=== PATIENT | male | born 1980 | race Two or more races ===

== ENCOUNTER 2017-10-08 15:56 | Emergency (ER) | payer OTHER | END 2017-10-08 17:15 | disposition home or self-care (01) | LOC: ER 15:56 | DX: S62.646A Nondisplaced fracture of proximal phalanx of right little finger, initial encounter for closed fracture (principal); W01.0XXA Fall on same level from slipping, tripping and stumbling without subsequent striking against object, initial encounter; Y93.89 Activity, other specified; Y99.8 Other external cause status; Y92.89 Other specified places as the place of occurrence of the external cause | CPT/HCPCS: 29125; 73130; 99284-25 ==

== ENCOUNTER 2021-03-09 11:58 | Emergency (ER) | payer SELFPAY ==
[~2021-03-09] VITALS: Ht 180.3 cm; Wt 138.6 kg
[~2021-03-09 11:58] MED LIST: HYDR-3164 PO
[2021-03-09 12:18] VITALS: BP 181/97
--- NOTE | 2021-03-09 12:51 | PHYS DOC ---
Past Medical History Past Medical History: No Pertinent History Past Surgical History: Other Additional Past Surgical Histo: right ear surgery Smoking Status: Current Every Day Smoker Alcohol Use: Occasionally Drug Use: None General Adult EDM: Chief Complaint: OTHER COMPLAINTS HPI: HPI: 40-year-old male past medical history obesity and tobacco dependence presents to the ED with his , (patient consents to his/her/their knowledge and involvement in pts' medical care), complains of painful white spots on his tongue for the past 2 days with associated decreased appetite. Cannot recall any acidic or spicy foods, trauma or dental work, aggressive brushing or new bra carol/retainers. No prior history of white oral lesions. No known history of immunocompromised state. Is in a monogamous relationship (no new sexual partners). No associated fever chills, cough, sore throat, headache, sinus congestion, flulike symptoms, anorexia or upper respiratory symptoms. Review of Systems: Review of Systems: Constitutional: Denies fever or chills. [] Eyes: Denies change in visual acuity. [] HENT: Denies nasal congestion or sore throat. [] Respiratory: Denies cough or shortness of breath. [] Cardiovascular: Denies chest pain or edema. [] GI: Denies nausea or vomiting or dysphagia Musculoskeletal: Denies back pain or joint pain. [] Integument: Denies rash or diaphoresis Neurologic: Denies headache, focal weakness or sensory changes. [] Endocrine: Denies polyuria or polydipsia. [] Lymphatic: Denies swollen glands. [] Psychiatric: Denies depression or anxiety. [] Heart Score: C/O Chest Pain: No Risk Factors: Risk Factors: DM, Current or recent (<one month) smoker, HTN, HLP, family history of CAD, obesity. Risk Scores: Score 0 - 3: 2.5% MACE over next 6 weeks - Discharge Home Score 4 - 6: 20.3% MACE over next 6 weeks - Admit for Clinical Observation Score 7 - 10: 72.7% MACE over next 6 weeks - Early Invasive Strategies Allergies: Allergies: Allergies Coded Allergies Type Severity Reaction Last Updated Verified No Known Drug Allergies 05/13/14 No Physical Exam: PE: Constitutional: Well developed, well nourished, no acute distress, non-toxic appearance. HENT: Normocephalic, atraumatic, mild pharyngeal erythema w./exudates, oropharynx patent, white patches over tongue and both pharyngeal tonsils, uvula midline/no swelling, Eyes: PERRLA, EOMI, conjunctiva normal, no discharge. Neck: Normal range of motion, supple, Cardiovascular: S1/2 present, regular rhythm Lungs & Thorax: Speaking in full sentences, bilateral equal chest rise, no tachypnea or increased work of breathing Skin: Warm, dry, no erythema, no rash. [] Extremities: No tenderness, no cyanosis, Neurologic: Alert and oriented X 3, normal motor function, normal sensory function, no focal deficits noted. [] Psychologic: Affect normal, judgement normal, mood normal. [] Current Patient Data: Vital Signs: Vital Signs Date Time Temp Pulse Resp B/P (MAP) Pulse Ox O2 Delivery O2 Flow Rate FiO2 03/09/21 12:18 97.9 114 18 181/97 (125) 97 Room Air 97.9 EKG: EKG: [] Radiology/Procedures: Radiology/Procedures: [] Course & Med Decision Making: Course & Med Decision Making Pertinent Labs and Imaging studies reviewed. (See chart for details) Concern for tongue ulcers and pharyneal exudates/erythema, concerning for viral process although pt was educated on ddx which includes HIV, lichen planus, strep, herpes or cancer. Pt refused covid testing. Will test for viral sources. Pt understands followup is needed if symptoms do not resolve in the next 2 weeks. Patient is tolerating oral intake. Repeat heart rate is 98 bpm. Pt with asymptomatic hypertension-no chest pain, confusion or dyspnea. Will discharge home with strict ED return precautions were given for fever, headache, nuchal rigidity, difficulty swallowing or breathing. Encouraged urgent outpatient follow-up with PMD and ENT. Life-threatening processes were considered but are low suspicion at this time, given history, physical exam and ED workup. Pt was educated on all prescription medications and adverse effects. All patient's questions were answered and pt was stable at time of discharge. Life/limb-threatening differential includes but is not limited to, mark's angina, peritonsillar abscess, retropharyngeal abscess, epiglottitis, bacterial tracheitis, uvulitis, sepsis, mastoiditis, traumatic injury, carotid/vertebral dissection, meningitis/encephalitis, intracranial aneurysms or neurologic process. I have spoken with the patient and/or caregivers. I explained the patient's condition, diagnoses and treatment plan based on the information available to me at this time. I have answered the patient and/or caregiver's questions and addressed any concerns. The patient and/or caregivers have a good understanding of patient's diagnosis, condition and treatment plan as can be expected at this point. Vital signs have been stable. Patient's condition is stable and appropriate for discharge from the emergency department. Patient will pursue further outpatient evaluation with primary care physician or other designated or consulting physician as outlined in the discharge instructions. The patient and/or caregivers are agreeable to this plan of care and follow-up instructions have been explained in detail. The patient and/or caregivers have received these instructions in written form and have expressed an understanding of the discharge instructions. The patient and/or caregivers are aware that any significant change of condition or worsening of symptoms should prompt immediate return to this or the closest emergency department or call to 911. Faustino Disclaimer: Faustino Disclaimer: This electronic medical record was generated, in whole or in part, using a voice recognition dictation system. Departure Departure Impression: Primary Impression: White folded gingivostomatosis Disposition: HOME / SELF CARE / HOMELESS Condition: STABLE Referrals: NO PCP (PCP) Follow-up with your primary care physician in 24 to 48 hours, OR FOLLOW UP WITH FAMILY MEDICINE: [address] [facility], [facility] [address] [place] [address] Patient Instructions: Gingivitis, Primary Herpetic Gingivostomatitis Additional Instructions: FOLLOW UP WITH ENT: FOR DEFINITIVE MANAGEMENT if symptoms do not resolve in the next 2 weeks, RECOMMEND SALT WATER RINSES AND OTC ANALGESIA Otolaryngology [address] [facility], [address] [place] [address] enforcement safety officer [facility] [address] [place] [id number] EMERGENCY DEPARTMENT GENERAL DISCHARGE INSTRUCTIONS Thank you for coming to [facility] Emergency Department (ED) today and trusting us with you care. We trust that you had a positive experience in our Emergency Department. If you wish to speak to the department management, you may call the Director at [phone]. YOUR FOLLOW UP INSTRUCTIONS ARE FOLLOWS: 1. Do you have a private Doctor? If you do not have a private doctor, please ask for a resource list of physicians or clinics that may be able to assist you with follow up care. 2. The Emergency Physicain has interpreted your x-rays. The X-Ray specialist will also review them. If there is a change in the findings, you will be notified in 48 hours when at all possible. 3. A lab test or culture has been done, your results will be reviewed and you will be notified if you need a change in treatment. ADDITIONAL INSTRUCTIONS AND INFORMATION: 1. Your care today has been supervised by a physician who is specially trained in emergency care. Many problems require more than one evaluation for a complete diagnosis and treatment. We recommend that you schedule your follow up appointment as recommended to ensure complete treatment of you illness or injury. If you are unable to obtain follow up care and continue to have a problem, or if your condition worsens, we recommend that you return to the ED. 2. We are not able to safely determine your condition over the phone nor are we able to give sound medical advice over the phone. For these safety reasons, if you call for medical advice we will ask you to come to the ED for further evaluation. 3. If you have any questions regarding these discharge instructions please call the ED at [phone]. SAFETY INFORMATION: In the interest of safety, wellness, and injury prevention; we encourage you to wear your sealbelt, if you smoke; quite smoking, and we encourage family to use a protective helmet for bicycling and other sporting events that present an increased risk for head injury. IF YOUR SYMPTOMS WORSEN OR NEW SYMPTOMS DEVELOP, OR YOU HAVE CONCERNS ABOUT YOUR CONDITION; OR IF YOUR CONDITION WORSENS WHILE YOU ARE WAITING FOR YOUR FOLLOW UP APPOINTMENT; EITHER CONTACT YOUR PRIMARY CARE DOCTOR, THE PHYSICIAN WHOSE NAME AND NUMBER YOU WERE GIVEN, OR RETURN TO THE ED IMMEDIATELY. ROSINA GASTELUM DO Mar 09, 2021 12:51
[2021-03-09 13:23] LABS: MONONUCLEOSIS PATIENT NEGATIVE (NEGATIVE)
== END 2021-03-09 13:23 | disposition home or self-care (01) ==
LOC: ER 11:58
DX: K05.10 Chronic gingivitis, plaque induced (principal); F17.200 Nicotine dependence, unspecified, uncomplicated
CPT/HCPCS: 86308; 87070; 87880; 99283